=== PATIENT | male | born 1990 | race Caucasian/White ===

== ENCOUNTER 2017-07-14 04:21 | Emergency (ER) | payer MEDICAID, OTHER ==
[~2017-07-14] VITALS: Ht 180.3 cm; Wt 67.7 kg
[2017-07-14 04:23] VITALS: BP 139/86
[2017-07-14] MEDS ORDERED: normal saline 1000ML IV soln IV ONE (04:35)
== END 2017-07-14 05:01 | disposition left against medical advice (07) ==
LOC: ER 04:21
DX: R22.1 Localized swelling, mass and lump, neck (principal); F15.90 Other stimulant use, unspecified, uncomplicated
CPT/HCPCS: 99281; J7030; 80053; 83735; 87040

== ENCOUNTER 2017-07-25 16:59 | Emergency (ER) | payer MEDICAID, OTHER | END 2017-07-25 18:48 | disposition left against medical advice (07) | LOC: ER 17:00 | DX: M79.606 Pain in leg, unspecified (principal); Z53.21 Procedure and treatment not carried out due to patient leaving prior to being seen by health care provider ==

== ENCOUNTER 2018-09-26 00:04 | Emergency (ER) | payer MEDICAID, OTHER ==
[~2018-09-26] VITALS: Ht 180.3 cm; Wt 68.2 kg
[2018-09-26 00:24] VITALS: BP 130/90
[2018-09-26] MEDS ORDERED: acetaminophen 325mg tablet PO STA (00:46)
[2018-09-26] MEDS ORDERED: CefTRIAXone 2gm/D5W 50ml 50 ML IV ONE (00:50)
[2018-09-26] MEDS ORDERED: normal saline 1000ML IV soln IV ONE (00:50)
[2018-09-26] MEDS ORDERED: TETanus/Pertussis (Acell)/Diphther VAC/PF (Tdap-Adult) 0.5ml syringe IM ONE (01:10)
[2018-09-26] MEDS ORDERED: LIDOcaine 1% w/epiNEPHrine 1:200,000 30ml vial IM ONE (01:10)
[2018-09-26 01:59] LABS: BASOPHILS # (AUTO) 0.1 X10'3 (0-0.2); BASOPHILS % (AUTO) 0.3 % (0-1); EOSINOPHILS # (AUTO) 0.6 X10'3 (0-0.9); EOSINOPHILS % (AUTO) 3.6 % (0-6); HEMATOCRIT 36.6 % (42.0-52.0); HEMOGLOBIN 11.7 g/dl (14.0-17.9); LYMPHOCYTES # (AUTO) 1.7 X10'3 (1.1-4.8); LYMPHOCYTES % (AUTO) 10.9 % (21-51); MEAN CORPUSCULAR HEMOGLOBIN 27.7 PG (27.0-31.0); MEAN CORPUSCULAR HGB CONC 32.1 g/dL (33.0-36.5); MEAN CORPUSCULAR VOLUME 86.3 FL (78-98); MEAN PLATELET VOLUME 8.1 FL (7.4-10.4); MONOCYTES # (AUTO) 0.7 X10'3 (0-0.9); MONOCYTES % (AUTO) 4.6 % (2-12); NEUTROPHILS # (AUTO) 12.5 X10'3 (1.8-7.7); NEUTROPHILS % (AUTO) 80.6 % (42-75); PLATELET COUNT 334 X10'3 (140-440); RED BLOOD COUNT 4.24 X10'6 (4.70-6.10); RED CELL DISTRIBUTION WIDTH 13.8 % (11.5-14.5); WHITE BLOOD COUNT 15.5 X10'3 (4.5-11.0)
[2018-09-26 02:03] LABS: PARTIAL THROMBOPLASTIN TIME 35 SECONDS (22-32)
[2018-09-26 02:05] LABS: ALANINE AMINOTRANSFERASE 36 U/L (12-78); ALBUMIN 3.2 G/DL (3.4-5.0); ALBUMIN/GLOBULIN RATIO 0.8 (1.1-1.5); ALKALINE PHOSPHATASE 99 IU/L (46-116); ANION GAP 7 (8-16); ASPARTATE AMINO TRANSFERASE 30 U/L (10-37); BILIRUBIN,TOTAL 0.3 MG/DL (0.1-1.0); BLOOD UREA NITROGEN 13 MG/DL (7-18); BUN/CREATININE RATIO 16.7 (5.4-32.0); CALCIUM 8.6 MG/DL (8.5-10.1); CHLORIDE 99 MMOL/L (99-107); CREATININE 0.78 MG/DL (0.60-1.10); GLUCOSE 130 MG/DL (70-104); POTASSIUM 3.7 MMOL/L (3.5-5.1); SODIUM 135 MMOL/L (135-145); TOTAL CARBON DIOXIDE 29.1 MMOL/L (24-32); eGFR > 90 ML/MIN
[2018-09-26] MEDS ORDERED: CEPH500C5 PO (02:46)
[2018-09-26] MEDS ORDERED: SULF1TAB49 PO (02:46)
== END 2018-09-26 03:40 | disposition left against medical advice (07) ==
LOC: ER 00:05
DX: L02.31 Cutaneous abscess of buttock (principal); L03.317 Cellulitis of buttock; F11.90 Opioid use, unspecified, uncomplicated; R79.1 Abnormal coagulation profile
CPT/HCPCS: 36415; 71045; 80053; 83605; 84145; 85025; 85610; 85730; 87040; 90471; 90715; 96365; 99284; J0696; J3490; J7030

== ENCOUNTER 2019-05-30 14:27 | Emergency (ER) | payer MEDICAID ==
[~2019-05-30] VITALS: Ht 180.3 cm; Wt 63.6 kg
[~2019-05-30 14:27] MED LIST: CEPH500C5 PO
[2019-05-30 14:49] VITALS: BP 132/75
[2019-05-30] MEDS ORDERED: ibuprofen tablet 400 MG TABLET PO ONE (15:20)
[2019-05-30] MEDS ORDERED: AMOX500C2 PO ×2 (15:49→16:00)
[2019-05-30] MEDS ORDERED: amoxicillin 250mg capsule PO ONE (15:55)
== END 2019-05-30 16:32 | disposition home or self-care (01) ==
LOC: ER 14:27
DX: J02.9 Acute pharyngitis, unspecified (principal); B96.89 Other specified bacterial agents as the cause of diseases classified elsewhere; F11.90 Opioid use, unspecified, uncomplicated; Z79.2 Long term (current) use of antibiotics
CPT/HCPCS: 87880; 99283

== ENCOUNTER 2019-07-12 19:54 | Emergency (ER) | payer MEDICAID ==
[~2019-07-12] VITALS: Ht 180.3 cm; Wt 65.0 kg
[~2019-07-12 19:54] MED LIST changes: +AMOX500C2 PO
[2019-07-12 20:08] VITALS: BP 130/71
[2019-07-12] MEDS ORDERED: SULF1TAB49 PO (21:29)
[2019-07-12] MEDS ORDERED: CEPH-572 PO (21:29)
[2019-07-12] MEDS ORDERED: TETanus/Pertussis (Acell)/Diphther VAC/PF (Tdap-Adult) 0.5ml syringe IMVAC ONE (21:45)
== END 2019-07-12 22:12 | disposition home or self-care (01) ==
LOC: ER 19:55
DX: L02.412 Cutaneous abscess of left axilla (principal); L03.112 Cellulitis of left axilla; F11.90 Opioid use, unspecified, uncomplicated; Z79.899 Other long term (current) drug therapy; Z59.0 Homelessness
CPT/HCPCS: 10060; 87070; 87077; 87186; 90471; 90715; 99283; 99284

== ENCOUNTER 2019-09-15 14:19 | Emergency (ER) | payer MEDICAID ==
[~2019-09-15] VITALS: Ht 180.3 cm; Wt 70.2 kg
[2019-09-15] MEDS ORDERED: SULF1TAB49 PO (15:43)
[2019-09-15] MEDS ORDERED: CEPH500C5 PO (15:43)
[2019-09-15 16:08] VITALS: BP 136/69
== END 2019-09-15 16:13 | disposition home or self-care (01) ==
LOC: ER 14:19
DX: L02.414 Cutaneous abscess of left upper limb (principal); F17.200 Nicotine dependence, unspecified, uncomplicated; F11.90 Opioid use, unspecified, uncomplicated
CPT/HCPCS: 10060; 99283

== ENCOUNTER 2020-10-04 16:05 | Emergency (ER) | payer MEDICAID ==
[~2020-10-04 16:05] MED LIST changes: -CEPH500C5 PO
== END 2020-10-04 18:26 | disposition left against medical advice (07) ==
LOC: ER 16:05
DX: M79.603 Pain in arm, unspecified (principal); Z53.21 Procedure and treatment not carried out due to patient leaving prior to being seen by health care provider

== ENCOUNTER 2020-11-09 14:40 | Emergency (ER) | payer MEDICAID | END 2020-11-09 15:14 | disposition left against medical advice (07) | LOC: ER 14:40 | DX: T50.905A Adverse effect of unspecified drugs, medicaments and biological substances, initial encounter (principal); Z53.21 Procedure and treatment not carried out due to patient leaving prior to being seen by health care provider; Y92.89 Other specified places as the place of occurrence of the external cause ==